=== PATIENT | female | born 1970 | race Caucasian/White ===

== ENCOUNTER 2019-07-11 10:02 | Emergency (ER) | payer OTHER ==
[2019-07-11 10:17] VITALS: TEMP 99.2; BMI 25.9
[2019-07-11] MEDS ORDERED: ACETAMINOPHEN 500 MG TABLET (FP) PO ONE (10:38)
[2019-07-11] MEDS ORDERED: ALBUTEROL SO4 2.5/IPRATROPIUM 0.5 INH SOL 3 ML VIAL.NEB. NEB ONE ×2 (10:38→10:44)
[2019-07-11] MEDS ORDERED: guaiFENesin 200 MG/10 ML 10 ML UNIT-DOSE CUPS PO ONE (10:42)
[2019-07-11] MEDS ORDERED: ACETAMINOPHEN 500 MG TABLET (FP) ONE (10:43)
--- NOTE | 2019-07-11 10:46 | PDOC ---
History of Present Illness - General Chief Complaint: Respiratory Stated Complaint: COUGH,CONGESTION,CHEST AND BACK PAIN Time Seen by Provider: 07/11/19 10:11 - History of Present Illness Initial Comments: 07/11/19 10:40 49yo female with no pmhx presents with her for eval of cough, congestion , fever since yesterday. States her symptoms started yesterday- rhinorrhea, sore throat, coughing- dry, nonproductive. Pt states she was taking robitussin yesterday and tylenol yesterday which made her feel better. States overnight she was awake and coughing all night. Has not taken any meds since yesterday at 4pm. Pt states son with similar symptoms at home which lasted 4 days but he is improving. Pt did not get the flu vaccine. Pt denies abd pain, n/v/d. No dysuria. Pt states she drank water this AM. No other complaints. Pmhx: denies Pshx: prateek, tubal ligation All: nkda Past History - Past Medical History Allergies/Adverse Reactions: Allergies Allergy/AdvReac Type Severity Reaction Status Date / Time No Known Allergies Allergy Verified 07/11/19 10:13 Home Medications: Ambulatory Orders No Home Medications 0 dose .ROUTE UTDICT 08/28/12 Albuterol Sulfate Inhaler - [Ventolin HFA Inhaler -] 1 - 2 inh PO QID #1 inhaler 07/11/19 Guaifenesin 200 mg PO Q4H PRN #300 ml 07/11/19 Inhaler, Assist Devices [Space Chamber Plus] 1 each MC QID PRN #1 spacer COPD: No - Surgical History Cholecystectomy: Yes - Psycho Social/Smoking Cessation Hx Smoking Status: No Smoking History: Never smoked Number of Cigarettes Smoked Daily: 0 Hx Alcohol Use: No Drug/Substance Use Hx: No Substance Use Type: None Review of Systems - Review of Systems Able to Perform ROS?: Yes Is the patient limited Persian proficient: No Constitutional: Yes: Chills, Fever HEENTM: Yes: Nose Congestion, Throat Pain. No: Ear Pain Respiratory: Yes: Cough. No: Shortness of Breath, Wheezing, Productive cough Cardiac (ROS): No: Chest Pain ABD/GI: No: Diarrhea, Nausea, Vomiting, Abdominal cramping : No: Burning, Dysuria Musculoskeletal: No: Back Pain, Muscle Pain Integumentary: No: Rash Neurological: No: Headache, Numbness, Paresthesia, Weakness All Other Systems: Reviewed and Negative *Physical Exam - Vital Signs Last Vital Signs Temp Pulse Resp BP Pulse Ox 99.2 F 94 H 18 136/79 98 07/11/19 10:10 07/11/19 10:10 07/11/19 10:18 07/11/19 10:10 07/11/19 10:18 - Physical Exam General Appearance: Yes: Nourished, Appropriately Dressed. No: Apparent Distress HEENT: positive: EOMI, CRICKET, Normal Voice, TMs Normal, Pharynx Normal. negative : Pharyngeal Erythema, Tonsillar Exudate, Tonsillar Erythema, Nasal Congestion, Rhinorrhea Neck: negative: Supple Respiratory/Chest: positive: Lungs Clear, Normal Breath Sounds. negative: Respiratory Distress Cardiovascular: positive: Regular Rhythm, Regular Rate, S1, S2. negative: Edema Gastrointestinal/Abdominal: positive: Normal Bowel Sounds, Soft. negative: Guarding, Rebound, Tenderness Musculoskeletal: positive: Normal Inspection Extremity: positive: Normal Inspection, Normal Range of Motion Integumentary: positive: Normal Color, Dry, Warm Neurologic: positive: Fully Oriented, Alert, Normal Mood/Affect, Normal Response ED Treatment Course - RADIOLOGY Radiology Studies Ordered: Category Date Time Status CHEST PA & LAT [RAD] Stat Radiology 07/11/19 10:38 Ordered Medical Decision Making - Medical Decision Making 07/11/19 10:44 a/p: 49yo female with sore throat, nasal congestion, cough-nonproductive -son with similar symptoms -last po meds were yesterday -tolerating po -suspect URI vs flu -will send for xray to r/o pna, though low suspicion given clear lungs -will give tylneol, robitussin, albuterol -will flu swab -pt is nontoxic in appearance -will monitor and reassess 07/11/19 11:26 cxr without pna 07/11/19 12:07 pt feeling better after meds flu neg discussed cxr findings discussed tylenol/motrin at home discussed follow up with PMD discussed all reasons to return to the ED will dc with albuterol and robitussin stable for dc to home PMD dr. claros Discharge - Discharge Information Problems reviewed: Yes Clinical Impression/Diagnosis: URI (upper respiratory infection) Condition: Stable Disposition: HOME - Admission No - Additional Discharge Information Prescriptions: Albuterol Sulfate Inhaler - [Ventolin HFA Inhaler -] 1 - 2 inh PO QID #1 inhaler Guaifenesin 200 mg PO Q4H PRN #300 ml PRN Reason: Cough Inhaler, Assist Devices [Space Chamber Plus] 1 each MC QID PRN #1 spacer PRN Reason: Cough - Follow up/Referral Referrals: Stan Payton MD [Staff Physician] - - Patient Discharge Instructions Patient Printed Discharge Instructions: DI for Viral Upper Respiratory Infection -- Adult Additional Instructions: Please take all medications as prescribed. Please take tylenol or motrin as needed for the fever. Please make an appointment to see your PMD on saturday as discussed. Please drink plenty of fluids. Please return to the ED with any further concerns or complaints. - Post Discharge Activity
[2019-07-11] MEDS ORDERED: guaiFENesin/D-METHORPHAN HB 10 ML UNIT-DOSE CUPS ONE (10:55)
[2019-07-11] MEDS ORDERED: guaiFENesin/D-METHORPHAN HB 10 ML UNIT-DOSE CUPS PO ONE (11:07)
[2019-07-11 12:20] VITALS: BP 112/78; PULSE 82
== END 2019-07-11 12:27 | disposition home or self-care (01) ==
LOC: FER 10:02
PROC: 3E0F7GC Introduction of Other Therapeutic Substance into Respiratory Tract, Via Natural or Artificial Opening (ICD-10-PCS; principal; 2019-07-11)
DX: J06.9 Acute upper respiratory infection, unspecified (principal)
CPT/HCPCS: 71046-TC-FY; 87804; 99282-25

== ENCOUNTER 2020-04-12 15:47 | Emergency (ER) | payer OTHER ==
--- NOTE | 2020-04-12 15:53 | PDOC ---
History of Present Illness - General Chief Complaint: Pain, Acute Stated Complaint: RIGHT HIP AND LEG PAIN - History of Present Illness Initial Comments: 04/12/20 15:53 49 year old woman who presents with R buttocks pain for the past 1 week after she was turning and lost balance. She states she stays on her feet for work and has been using advil with mild relief. Today she felt that her pain was severe enough that she couldn't stay on her feet for the rest of the work day. She denies any urinary retention, incontinence, numbness, tingling in the groin, denies pain down the leg, nubmness, tingling or spinal pain. She has no other complaints. ROS GENERAL/CONSTITUTIONAL: No fever or chills. No weakness. HEAD, EYES, EARS, NOSE AND THROAT: No change in vision. No ear pain or discharge. No sore throat. CARDIOVASCULAR: No chest pain or shortness of breath RESPIRATORY: No cough, wheezing, or hemoptysis. GASTROINTESTINAL: No nausea, vomiting, diarrhea or constipation. GENITOURINARY: No dysuria, frequency, or change in urination. MUSCULOSKELETAL: + joint or muscle swelling or pain. No neck or back pain. SKIN: No rash NEUROLOGIC: No headache, vertigo, loss of consciousness, or change in strength/sensation. ENDOCRINE: No increased thirst. No abnormal weight change HEMATOLOGIC/LYMPHATIC: No anemia, easy bleeding, or history of blood clots. ALLERGIC/IMMUNOLOGIC: No hives or skin allergy. PE GENERAL: Awake, alert, and fully oriented, in no acute distress HEAD: No signs of trauma, normocephalic, atraumatic EYES: EOMI, sclera anicteric, conjunctiva clear ENT: oropharynx clear without exudates. Moist mucosa NECK: Normal ROM, supple LUNGS: No distress, speaks full sentences, clear to auscultation bilaterally HEART: Regular rate and rhythm, normal S1 and S2, no murmurs, rubs or gallops, peripheral pulses normal and equal bilaterally. ABDOMEN: Soft, nontender. No guarding, no rebound. No masses EXTREMITIES : Normal inspection, Normal range of motion, no edema. No clubbing or cyanosis. + R buttocks ttp NEUROLOGICAL: Cranial nerves II through XII grossly intact. Normal speech, normal gait, no focal sensorimotor deficits SKIN: Warm, Dry, normal turgor, no rashes or lesions noted Assessment and Plan 49 year old woman who presents with R buttocks pain for the past 1 week after she was turning and lost balance. She states she stays on her feet for work and has been using advil with mild relief. Most consistent with msk pain pain control work off pcp f/u Amanda Estrada, PGY3 Emergency Medicine 04/12/20 15:58 Past History - Medical History Allergies/Adverse Reactions: Allergies Allergy/AdvReac Type Severity Reaction Status Date / Time No Known Allergies Allergy Verified 07/11/19 10:13 Home Medications: Ambulatory Orders No Home Medications 0 dose .ROUTE UTDICT 08/28/12 Albuterol Sulfate Inhaler - [Ventolin HFA Inhaler -] 1 - 2 inh PO QID #1 inhaler 07/11/19 Guaifenesin 200 mg PO Q4H PRN #300 ml 07/11/19 Inhaler, Assist Devices [Space Chamber Plus] 1 each MC QID PRN #1 spacer 07/11/19 Ibuprofen 600 mg PO Q6H #30 tablet 04/12/20 COPD: No - Surgical History Cholecystectomy: Yes - Psycho-Social/Smoking History Smoking Status: No Smoking History: Never smoked Number of Cigarettes Smoked Daily: 0 Discharge - Discharge Information Problems reviewed: Yes Clinical Impression/Diagnosis: Pain Condition: Good Disposition: HOME - Additional Discharge Information Prescriptions: Ibuprofen 600 mg PO Q6H #30 tablet - Follow up/Referral - Patient Discharge Instructions Additional Instructions: You were seen in the ER for complaints of R buttocks pain after a fall You had a pelvic and hip x-ray that was negative You were given pain medications that was also prescribed to you. Please take as prescribed Take days of worst and get some rest and ice the area. Please see your Family Doctor within 1 week. Return to the ER if you develop worsening pain, swelling, changes in urination, numbness, tingling or any other concerning symptoms - Post Discharge Activity Work/Back to School Note: Back to Work
[2020-04-12 16:01] VITALS: BP 127/79; PULSE 77; TEMP 97.9; BMI 27.6
[2020-04-12] MEDS ORDERED: IBUPROFEN 600 MG TABLET (FP) PO ONE ×3 (16:01→18:13)
[2020-04-12] MEDS ORDERED: ACETAMINOPHEN 500 MG TABLET (FP) PO ONE (16:01)
[2020-04-12] MEDS ORDERED: ACETAMINOPHEN 325 MG TABLET (FP) ONE (16:11)
--- NOTE | 2020-04-12 16:14 | PDOC ---
Attending Attestation - Resident Resident Name: Amanda Estrada - ED Attending Attestation I have performed the following: I have examined & evaluated the patient, The case was reviewed & discussed with the resident, I agree w/resident's findings & plan, Exceptions are as noted - HPI HPI: 49 yo F presents with pain to R buttocks for past 1 week after turning, lost balance while at work. Denies weakness, numbness. Has been taking NSAIDs without relief. - Physicial Exam PE: GENERAL: Awake, alert, and fully oriented, in no acute distress HEAD: No signs of trauma EYES: PERRLA, EOMI, sclera anicteric, conjunctiva clear ENT: Auricles normal inspection, hearing grossly normal, nares patent, oropharynx clear without exudates. Moist mucosa NECK: Normal ROM, supple, no lymphadenopathy, JVD, or masses LUNGS: Breath sounds equal, clear to auscultation bilaterally. No wheezes, and no crackles HEART: Regular rate and rhythm, normal S1 and S2, no murmurs, rubs or gallops ABDOMEN: Soft, nontender, normoactive bowel sounds. No guarding, no rebound. No masses EXTREMITIES: Normal range of motion, no edema. No clubbing or cyanosis. No cords, erythema, or tenderness. +Tenderness to the R buttock, piriformis area. NEUROLOGICAL: Cranial nerves II through XII grossly intact. Normal speech. +Antalgic gait. Motor and sensation intact SKIN: Warm, dry, normal turgor, no rashes or lesions noted. - Medical Decision Making Pt with musculoskeletal pain. XR no acute fx. Recommended NSAIDs. Stable for DC home. Discharge - Discharge Information Problems reviewed: Yes Clinical Impression/Diagnosis: Pain Condition: Stable Disposition: HOME - Additional Discharge Information Prescriptions: Ibuprofen 600 mg PO Q6H #30 tablet - Follow up/Referral - Patient Discharge Instructions Additional Instructions: You were seen in the ER for complaints of R buttocks pain after a fall You had a pelvic and hip x-ray that was negative You were given pain medications that was also prescribed to you. Please take as prescribed Take days of worst and get some rest and ice the area. Please see your Family Doctor within 1 week. Return to the ER if you develop worsening pain, swelling, changes in urination, numbness, tingling or any other concerning symptoms - Post Discharge Activity Work/Back to School Note: Back to Work
== END 2020-04-12 18:14 | disposition home or self-care (01) ==
LOC: FER 15:47
DX: M25.551 Pain in right hip (principal)
CPT/HCPCS: 73523-TC-FY; 84703; 99284-25

== ENCOUNTER 2020-10-29 12:24 | Emergency (ER) | payer OTHER ==
[2020-10-29 12:34] VITALS: BP 130/85; PULSE 96; TEMP 98.6; BMI 28.8
[2020-10-29 13:02] LABS: EPITHELIAL CELLS MODERATE /hpf
== END 2020-10-29 13:18 | disposition home or self-care (01) ==
LOC: FER 12:24
DX: R82.998 Other abnormal findings in urine (principal)
CPT/HCPCS: 81003; 81015; 87086; 87186; 99284-25

== ENCOUNTER 2022-08-06 12:06 | Emergency (ER) | payer OTHER ==
[2022-08-06 12:16] VITALS: BP 125/81; PULSE 79; RESP 16; TEMP 97.8; BMI 30.9
[2022-08-06 12:54] LABS: EPITHELIAL CELLS FEW /hpf
== END 2022-08-06 14:11 | disposition home or self-care (01) ==
LOC: FER 12:06
DX: N30.00 Acute cystitis without hematuria (principal)
CPT/HCPCS: 81003; 81015; 87086; 99283-25